=== PATIENT | male | born 1970 | race Caucasian/White ===

== ENCOUNTER 2016-12-16 20:09 | Emergency (ER) | payer OTHER ==
[~2016-12-16] VITALS: Ht 185.4 cm; Wt 111.1 kg
[~2016-12-16 20:09] MED LIST: OMEPRAZOLE40 M1 PO
[2016-12-16] MEDS ORDERED: ULTRAM50 MG PO (23:05)
[2016-12-16 23:28] VITALS: BP 135/99
== END 2016-12-16 23:33 | disposition home or self-care (01) ==
LOC: EME 20:09 → EXP 20:09
DX: S40.012A Contusion of left shoulder, initial encounter (principal); W10.8XXA Fall (on) (from) other stairs and steps, initial encounter; Y92.811 Bus as the place of occurrence of the external cause; I10 Essential (primary) hypertension; K21.9 Gastro-esophageal reflux disease without esophagitis; Z88.8 Allergy status to other drugs, medicaments and biological substances
CPT/HCPCS: 73030; 73060; 73080; 99281; 99284

== ENCOUNTER 2017-01-15 23:04 | Emergency (ER) | payer OTHER ==
[~2017-01-15] VITALS: Ht 185.4 cm; Wt 121.4 kg
[~2017-01-15 23:04] MED LIST changes: +ULTRAM50 MG PO
[2017-01-16 01:48] LABS: EOSINOPHIL (%) 1.9 % (0-5); EOSINOPHIL COUNT 0.2 K/uL (0-0.3); HEMATOCRIT 38.3 % (38.0-50.0); IMMATURE GRANULOCYTE (%) 0.5 % (0.0-0.7); LYMPHOCYTE COUNT 2.3 K/uL (1.0-2.8); MCH 32.7 PG (29.0-34.0); MCHC 34.5 G/DL (30.0-36.0); MCV 94.8 FL (86-99); MEAN PLAT.VOLUME 9.1 uM^3 (9.0-12.4); MONOCYTE (%) 6.2 % (3-12); MONOCYTE COUNT 0.5 K/uL (0-0.8); NEUTROPHIL (%) 61.9 % (45-76); PLATELET COUNT 263 K/uL (156-360); RBC DIS.WIDTH-CV 13.2 % (11.8-14.6); RBC DIS.WIDTH-SD 45.4 % (39-53); RED BLOOD COUNT 4.04 M/uL (4.00-5.50)
[2017-01-16 01:56] LABS: CHLORIDE 104 mEq/L (99-109); POTASSIUM 3.7 mEq/L (3.7-5.4); SODIUM 136 mEq/L (136-147)
[2017-01-16 01:58] LABS: GLUCOSE 99 mg/dL (70-99)
[2017-01-16 01:59] LABS: ANION GAP 7 MEQ/L (2-14)
[2017-01-16 02:00] LABS: TOTAL BILIRUBIN 0.4 mg/dL (0.0-1.0)
[2017-01-16 02:01] LABS: ALKALINE PHOSPHATASE 88 IU/L (3-129)
[2017-01-16 02:02] LABS: GFR ESTIMATE (CALCULATED) > 59 mL/min/
[2017-01-16 02:03] LABS: UREA NITROGEN (BUN) 10 mg/dL (9-23)
[2017-01-16 02:58] LABS: ADD MIUA? NO; BILIRUBIN NEGATIVE; BLOOD NEGATIVE; COLOR STRAW ((YELLOW)); GLUCOSE (STRIP) NEGATIVE; KETONES NEGATIVE; LEUKOCYTES NEGATIVE; NITRITE NEGATIVE; PROTEIN (STRIP) NEGATIVE; SPECIFIC GRAVITY 1.009 (1.000-1.030); UCUL ADDED? NO; UROBILINOGEN 0.2 MG/DL (0.2-1.0)
[2017-01-16] MEDS ORDERED: [UNRECOGNIZED DRUG - OTHER] MC (04:03)
[2017-01-16] MEDS ORDERED: HYDROCHLOROTH12.5 M3 PO (04:03)
[2017-01-16 04:46] VITALS: BP 121/75
== END 2017-01-16 04:48 | disposition home or self-care (01) ==
LOC: EME 23:04
PROVIDERS: Emergency Medicine
DX: R60.0 Localized edema (principal); I10 Essential (primary) hypertension; E66.01 Morbid (severe) obesity due to excess calories; Z59.0 Homelessness; K21.9 Gastro-esophageal reflux disease without esophagitis; Z88.6 Allergy status to analgesic agent
CPT/HCPCS: 80053; 81003; 83880; 85025; 93970; 99281; 99284